=== PATIENT | male | born 1975 | race Caucasian/White ===

== ENCOUNTER 2017-08-23 09:03 | Emergency (ER) | payer SELFPAY ==
[2017-08-23 09:11] VITALS: TEMP 98.1
--- NOTE | 2017-08-23 10:55 | C.PDOC ---
History Of Present Illness 41 y/o male presents to the ED c/o left thumb injury. The patient states that it was sustained at work one month ago. The patient is right hand dominate and he has seen a doctor for the persisted symptoms in the past month . The patient denies rash, lesions, and fever. Time Seen by Provider: 08/23/17 09:32 Chief Complaint (Nursing): Upper Extremity Problem/Injury History Per: Patient History/Exam Limitations: no limitations Onset/Duration Of Symptoms: Days Current Symptoms Are (Timing): Still Present Past Medical History Reviewed: Historical Data, Nursing Documentation, Vital Signs Vital Signs: Last Vital Signs Temp 98.1 F 08/23/17 09:10 Pulse 55 L 08/23/17 11:07 Resp 18 08/23/17 11:07 BP 126/85 08/23/17 11:07 Pulse Ox 97 08/23/17 11:35 Surgical History: No Surg Hx Family History: States: No Known Family Hx - Social History Hx Alcohol Use: Yes Hx Substance Use: No - Immunization History Hx Tetanus Toxoid Vaccination: No Hx Influenza Vaccination: No Hx Pneumococcal Vaccination: No Review Of Systems Except As Marked, All Systems Reviewed And Found Negative. Constitutional: Negative for: Fever Musculoskeletal: Positive for: Other (left thumb pain ) Skin: Negative for: Rash, Lesions, Bruising Physical Exam - Physical Exam Appears: Non-toxic, No Acute Distress Skin: Dry Head: Atraumatic, Normacephalic Oral Mucosa: Moist Neck: Supple Cardiovascular: Rhythm Regular Respiratory: Normal Breath Sounds Extremity: Tenderness (left proximal thumb region), Capillary Refill (2<sec.), Other ( no cellulitis process ) Neurological/Psych: Oriented x3, Normal Speech, Normal Cognition, Other (neuro vascular intact ) ED Course And Treatment O2 Sat by Pulse Oximetry: 97 (RA) Progress Note: The preliminary read on the hand x-ray reading shows a proximal left thumb metacarpal fracture. A volar splint was applied. The patient is advised to have a 1-2 day follow up with Dr. Boston French for further evaluation. Patient is nv intact after volar splint application Medical Decision Making Medical Decision Making: PROCEDURE: Left Wrist Radiographs. HISTORY: fall COMPARISON: None. FINDINGS: BONES: No acute fracture or destructive bony lesion identified. JOINTS: Normal. No dislocation. SOFT TISSUES: Normal. OTHER FINDINGS: None. IMPRESSION: Unremarkable left wrist radiographs. PROCEDURE: Left Thumb radiographs. HISTORY: fall COMPARISON: None. TECHNIQUE: AP radiograph of the left hand, as well as spot oblique and lateral images of thumb were obtained. FINDINGS: LEFT THUMB: Normal left thumb, without fracture or focal lesion. Remainder of the left hand (as seen on the AP view) grossly unremarkable. JOINTS: Normal. SOFT TISSUES: Normal. OTHER FINDINGS: None. IMPRESSION: Unremarkable left thumb radiographs. Disposition Counseled Patient/Family Regarding: Studies Performed, Diagnosis, Need For Followup - Disposition Referrals: Shruti Gonzalez MD [Staff Provider] - Disposition: HOME/ ROUTINE Disposition Time: 10:53 Condition: GOOD Additional Instructions: follow up with doctor in 2 days call to make an appointment take pain medication as needed return to hospital if symptoms worsens or progress Prescriptions: Naproxen [Naprosyn] 500 mg PO BID PRN #16 tab PRN Reason: Pain, Moderate (4-7) Instructions: Thumb Fracture (ED) Forms: [facility] (Malay), General Discharge Instructions, [facility] (Tamazight), Gen Discharge Inst [place] Print Language: MARTINIQUAIS - Clinical Impression Clinical Impression: Fracture of bone - Scribe Statement The provider has reviewed the documentation as recorded by the Scribe Lexy Mcconnell
[2017-08-23 11:08] VITALS: BP 126/85; PULSE 55; RESP 18
--- NOTE | 2017-08-23 11:10 | RAD ---
PROCEDURE: Left Wrist Radiographs. HISTORY: fall COMPARISON: None. FINDINGS: BONES: No acute fracture or destructive bony lesion identified. JOINTS: Normal. No dislocation. SOFT TISSUES: Normal. OTHER FINDINGS: None. IMPRESSION: Unremarkable left wrist radiographs.
--- NOTE | 2017-08-23 11:10 | RAD ---
PROCEDURE: Left Thumb radiographs. HISTORY: fall COMPARISON: None. TECHNIQUE: AP radiograph of the left hand, as well as spot oblique and lateral images of thumb were obtained. FINDINGS: LEFT THUMB: Normal left thumb, without fracture or focal lesion. Remainder of the left hand (as seen on the AP view) grossly unremarkable. JOINTS: Normal. SOFT TISSUES: Normal. OTHER FINDINGS: None. IMPRESSION: Unremarkable left thumb radiographs.
[2017-08-23 11:22] VITALS: O2SAT 97
== END 2017-08-23 11:08 | disposition home or self-care (01) ==
LOC: C.ER 09:03
DX: S62.512A Displaced fracture of proximal phalanx of left thumb, initial encounter for closed fracture (principal); X58.XXXA Exposure to other specified factors, initial encounter

== ENCOUNTER 2017-12-08 03:44 | Emergency (ER) | payer SELFPAY ==
[2017-12-08 03:56] VITALS: TEMP 98.1
--- NOTE | 2017-12-08 05:06 | C.PDOC ---
History Of Present Illness 41 year old male presents to the ER after being found intoxicated in public. Patient is also complaining of cold symptoms and sore throat. Denies fever or chills. Time Seen by Provider: 12/08/17 04:02 Chief Complaint (Nursing): Substance Abuse History Per: Patient History/Exam Limitations: no limitations Onset/Duration Of Symptoms: Hrs Current Symptoms Are (Timing): Still Present Suicide/Self Injury Attempted (Context): None Modifying Factor(s): Alcohol Associated Symptoms: Other (Sore throat) Involuntary Hold By: None Recent travel outside of the [place]: No Past Medical History Reviewed: Historical Data, Nursing Documentation, Vital Signs Vital Signs: Last Vital Signs Temp 98.1 F 12/08/17 03:53 Pulse 82 12/08/17 06:19 Resp 14 12/08/17 06:19 BP 130/75 12/08/17 06:19 Pulse Ox 96 12/08/17 06:19 Family History: States: Unknown Family Hx - Social History Hx Alcohol Use: Yes Hx Substance Use: No - Immunization History Hx Tetanus Toxoid Vaccination: No Hx Influenza Vaccination: No Hx Pneumococcal Vaccination: No Review Of Systems Constitutional: Negative for: Fever, Chills ENT: Positive for: Throat Pain. Negative for: Ear Pain Physical Exam - Physical Exam Appears: Non-toxic, No Acute Distress, Other (ETOH on breath) Skin: Normal Color, Warm, Dry Head: Atraumatic, Normacephalic Eye(s): bilateral: Normal Inspection Oral Mucosa: Moist Throat: Normal, No Erythema, No Exudate Neck: Normal, Supple Chest: Symmetrical, No Tenderness Cardiovascular: Rhythm Regular Respiratory: Normal Breath Sounds, No Rales, No Rhonchi, No Wheezing Gastrointestinal/Abdominal: Soft, No Tenderness Neurological/Psych: Oriented x3, Normal Speech ED Course And Treatment O2 Sat by Pulse Oximetry: 97 (Room air) Pulse Ox Interpretation: Normal Progress Note: Patient with prolonged episode of hiccups, reglan ordered. Pt is resting comfortably in the ER in no acute distress, vitals are stable, will wait until clinically sober and discharge home. 0650----Pt is AAOx3, reports relief of hiccups. ambulatory with steady gait. 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 - Scribe Statement The provider has reviewed the documentation as recorded by the Scribe Jason Grewal All medical record entries made by the Scribe were at my direction and personally dictated by me. I have reviewed the chart and agree that the record accurately reflects my personal performance of the history, physical exam, medical decision making, and the department course for this patient. I have also personally directed, reviewed, and agree with the discharge instructions and disposition.
[2017-12-08 06:20] VITALS: BP 130/75; PULSE 82; RESP 14
[2017-12-08 06:52] VITALS: O2SAT 97
== END 2017-12-08 06:58 | disposition home or self-care (01) ==
LOC: SUPCPDRO 03:44 → C.ER 03:44
DX: F10.10 Alcohol abuse, uncomplicated (principal); Y90.9 Presence of alcohol in blood, level not specified; R06.6 Hiccough
CPT/HCPCS: 82948; 96372; 99284; J2765